=== PATIENT | male | born 1955 | race Asian ===

== ENCOUNTER 2018-11-23 10:34 | Inpatient (IN) | payer OTHER ==
[~2018-11-23 10:34] MED LIST: CEFAZOLIN 2 GM/50 ML (PMX) 50 ML IVPB; GLYCOPYRROLATE 0.4 MG INJ; Metronidazole 500 MG in NS 100 ML IVPB; NEOSTIGMINE 3 MG/3 ML SYRINGE; ROCURONIUM 50 MG INJ; metroNIDAZOLE 500 MG/100 ML NS IVPB
[2018-11-23] MEDS ORDERED: MIDAZOLAM 1 MG/ML 2 ML INJ (13:32)
[2018-11-23] MEDS ORDERED: morphine SULFATE/PF (10 MG/10 ML) INJ (13:32)
[2018-11-23] MEDS ORDERED: FENTAnyl 50 MCG/ML VIAL (13:32)
[2018-11-23] MEDS ORDERED: LIDOCAINE 2% (SDV) 5 ML INJ (14:32)
[2018-11-23] MEDS: D5W-0.45 NACL + KCL 20 MEQ 1,000 ML IV ×2 (14:32→20:55)
[2018-11-23] MEDS ORDERED: ETOMIDATE 20 MG INJ (14:32)
[2018-11-23] MEDS ORDERED: CEFAZOLIN 1 GM INJ (14:33)
[2018-11-23] MEDS ORDERED: ONDANSETRON 4 MG INJ (14:41)
[2018-11-23] MEDS ORDERED: ONDANSETRON 4 MG INJ IV ×2 (15:00)
[2018-11-23] MEDS ORDERED: LORAZEPAM 2 MG INJ IV (15:00)
[2018-11-23] MEDS ORDERED: FENTAnyl 50 MCG/ML VIAL IV (15:00)
[2018-11-23] MEDS ORDERED: DIPHENHYDRAMINE 50 MG INJ IV (15:00)
[2018-11-23] MEDS: metroNIDAZOLE 500 MG/NS (PMX) 100 ML IVPB ×2 (15:00→22:29)
[2018-11-23] MEDS ORDERED: MEPERIDINE 25 MG INJ IV (15:00)
[2018-11-23] MEDS ORDERED: HYDROmorphONE 1 MG/5 ML IV SYRINGE IV ×2 (15:00)
[2018-11-23] MEDS ORDERED: CEFAZOLIN 2 GM/50 ML (PMX) 50 ML IVPB (15:00)
[2018-11-23 15:37] LABS: HEMATOCRIT 40.2 % (42.0-52.0); HEMOGLOBIN 12.5 g/dl (14.0-18.0)
[2018-11-23] MEDS: ACETAMINOPHEN 1000MG/100ML IV 100 ML IVPB ×3 (15:50→20:56)
[2018-11-23 16:03] LABS: ANION GAP 12 (5-13); CARBON DIOXIDE 22 mmol/L (21-31); CHLORIDE 102 mmol/L (97-110); Estimated GFR > 60 mL/min (>60); GLUCOSE 159 mg/dl (70-220)
[2018-11-23 16:11] LABS: BLOOD UREA NITROGEN 9 mg/dl (7-20); CREATININE 0.59 mg/dl (0.61-1.24); SODIUM 136 mmol/L (135-144)
[2018-11-23] MEDS ORDERED: GLUCAGON 1 MG INJ IM (20:30)
[2018-11-23] MEDS ORDERED: DEXTROSE 50% 50 ML SYRINGE IV ×2 (20:30)
[2018-11-23] MEDS ORDERED: GLUCOSE GEL 15 GRAM TUBE PO ×2 (20:30)
[2018-11-23] MEDS ORDERED: GLUCOSE GEL 15 GRAM TUBE BUCCAL (20:30)
[2018-11-23] MEDS: INSULIN ASPART [NOVOLOG] 3 ML PEN SC (21:00)
[2018-11-23] MEDS: CEFAZOLIN 2 GM/50 ML (PMX) 50 ML IVPB (21:47)
[2018-11-24] MEDS: ACETAMINOPHEN 1000MG/100ML IV 100 ML IVPB ×2 (02:38→08:33)
[2018-11-24] MEDS: HYDROmorphONE 0.5 MG/0.5 ML SYG IV (02:48)
[2018-11-24] MEDS: ACCU-CHEK XX (02:51)
[2018-11-24] MEDS: D5W-0.45 NACL + KCL 20 MEQ 1,000 ML IV (03:52)
[2018-11-24] MEDS: PANTOPRAZOLE (EC) 40 MG TAB PO (05:20)
[2018-11-24] MEDS: CEFAZOLIN 2 GM/50 ML (PMX) 50 ML IVPB ×2 (05:20→14:13)
[2018-11-24 05:43] LABS: INR 1.19; PROTIME 15.2 Sec (11.9-14.9); PT RATIO 1.2
[2018-11-24] MEDS: DIPHENHYDRAMINE 50 MG INJ IV (05:59)
[2018-11-24] MEDS: metroNIDAZOLE 500 MG/NS (PMX) 100 ML IVPB (06:00)
[2018-11-24] MEDS: POTASSIUM CHLORIDE 10 MEQ in SOD CHLORIDE 0.45% 1,000 ML IV (08:29)
[2018-11-24] MEDS: KETOROLAC 15 MG INJ IV ×3 (08:34→20:36)
[2018-11-24] MEDS: INSULIN ASPART [NOVOLOG] 3 ML PEN SC ×4 (08:47→20:44)
[2018-11-24 08:49] LABS: ADD MAN DIFF? NO
[2018-11-24 08:51] LABS: BASOPHILS % 0.2 % (0.0-2.0); EOSINOPHILS # 0.1 10^3/ul (0.0-0.5); EOSINOPHILS % 0.4 % (0.0-7.0); HEMATOCRIT 37.8 % (42.0-52.0); HEMOGLOBIN 11.8 g/dl (14.0-18.0); LYMPHOCYTES # 1.1 10^3/ul (0.8-2.9); LYMPHOCYTES % 9.3 % (15.0-51.0); MEAN CORPUSCULAR HEMOGLOBIN 25.1 pg (29.0-33.0); MEAN CORPUSCULAR HGB CONC 31.2 g/dl (32.0-37.0); MEAN CORPUSCULAR VOLUME 80.4 fl (82.0-101.0); MONOCYTE # 1.2 10^3/ul (0.3-0.9); MONOCYTES % 9.6 % (0.0-11.0); NEUTROPHIL # 9.8 10^3/ul (1.6-7.5); NEUTROPHILS % 80.2 % (39.0-77.0); PLATELET COUNT 280 10^3/UL (140-415); RED CELL DISTRIBUTION WIDTH 13.8 % (11.5-14.5)
[2018-11-24 08:51] LABS: WHITE BLOOD COUNT 12.3 10^3/ul (4.8-10.8)
[2018-11-24 09:02] LABS: ANION GAP 10 (5-13); BLOOD UREA NITROGEN 10 mg/dl (7-20); CALCIUM 8.8 mg/dl (8.4-10.2); CARBON DIOXIDE 25 mmol/L (21-31); CHLORIDE 97 mmol/L (97-110); CREATININE 0.67 mg/dl (0.61-1.24); Estimated GFR > 60 mL/min (>60); GLUCOSE 220 mg/dl (70-220); POTASSIUM 4.7 mmol/L (3.5-5.1); SODIUM 132 mmol/L (135-144)
[2018-11-24] MEDS: ENOXAPARIN 40 MG/0.4 ML SYG SC (12:11)
[2018-11-24] MEDS: DOCUSATE SODIUM 100 MG CAP PO (17:43)
[2018-11-24] MEDS: OXYCODONE/ACETAMINOPHEN (5/325) TAB PO (20:56)
[2018-11-25] MEDS: KETOROLAC 15 MG INJ IV ×4 (01:42→20:44)
[2018-11-25] MEDS: ACCU-CHEK XX (01:44)
[2018-11-25] MEDS: POTASSIUM CHLORIDE 10 MEQ in SOD CHLORIDE 0.45% 1,000 ML IV (01:50)
[2018-11-25] MEDS: PANTOPRAZOLE (EC) 40 MG TAB PO (05:19)
[2018-11-25 05:20] LABS: ADD MAN DIFF? NO
[2018-11-25 05:26] LABS: BASOPHILS % 0.3 % (0.0-2.0); EOSINOPHILS # 0.2 10^3/ul (0.0-0.5); EOSINOPHILS % 1.5 % (0.0-7.0); HEMATOCRIT 33.7 % (42.0-52.0); LYMPHOCYTES # 2.1 10^3/ul (0.8-2.9); LYMPHOCYTES % 17.5 % (15.0-51.0); MEAN CORPUSCULAR HEMOGLOBIN 24.8 pg (29.0-33.0); MEAN CORPUSCULAR HGB CONC 32.6 g/dl (32.0-37.0); MEAN CORPUSCULAR VOLUME 75.9 fl (82.0-101.0); MEAN PLATELET VOLUME 9.2 fl (7.4-10.4); MONOCYTE # 1.3 10^3/ul (0.3-0.9); MONOCYTES % 10.7 % (0.0-11.0); NEUTROPHIL # 8.4 10^3/ul (1.6-7.5); NEUTROPHILS % 69.7 % (39.0-77.0); PLATELET COUNT 243 10^3/UL (140-415); RED BLOOD COUNT 4.44 10^6/ul (4.70-6.10); RED CELL DISTRIBUTION WIDTH 13.1 % (11.5-14.5)
[2018-11-25 05:52] LABS: ANION GAP 10 (5-13); BLOOD UREA NITROGEN 9 mg/dl (7-20); CALCIUM 8.2 mg/dl (8.4-10.2); CARBON DIOXIDE 21 mmol/L (21-31); CHLORIDE 94 mmol/L (97-110); CREATININE 0.62 mg/dl (0.61-1.24); Estimated GFR > 60 mL/min (>60); GLUCOSE 167 mg/dl (70-220); POTASSIUM 3.8 mmol/L (3.5-5.1); SODIUM 125 mmol/L (135-144)
[2018-11-25] MEDS: ENOXAPARIN 40 MG/0.4 ML SYG SC (06:24)
[2018-11-25] MEDS ORDERED: traMADol 50 MG TAB GTB (08:00)
[2018-11-25] MEDS ORDERED: SOD CHLORIDE 0.9% 1,000 ML IV (08:00)
[2018-11-25] MEDS: AMLODIPINE 5 MG TAB GTB (08:44)
[2018-11-25] MEDS: INSULIN ASPART [NOVOLOG] 3 ML PEN SC ×4 (08:53→20:46)
[2018-11-25] MEDS: POTASSIUM CHLORIDE 10 MEQ in SOD CHLORIDE 0.9% 1,000 ML IV ×2 (10:56→22:31)
[2018-11-25] MEDS ORDERED: POTASSIUM CHLORIDE 10 MEQ in SOD CHLORIDE 0.9% 1,000 ML IV (14:30)
[2018-11-26] MEDS: KETOROLAC 15 MG INJ IV ×2 (02:32→09:22)
[2018-11-26] MEDS: ACCU-CHEK XX (02:32)
[2018-11-26 05:29] LABS: ADD MAN DIFF? NO
[2018-11-26 05:33] LABS: BASOPHILS % 0.3 % (0.0-2.0); EOSINOPHILS # 0.3 10^3/ul (0.0-0.5); EOSINOPHILS % 2.8 % (0.0-7.0); HEMATOCRIT 33.2 % (42.0-52.0); HEMOGLOBIN 10.8 g/dl (14.0-18.0); LYMPHOCYTES # 1.3 10^3/ul (0.8-2.9); LYMPHOCYTES % 13.8 % (15.0-51.0); MEAN CORPUSCULAR HEMOGLOBIN 24.8 pg (29.0-33.0); MEAN CORPUSCULAR HGB CONC 32.5 g/dl (32.0-37.0); MEAN CORPUSCULAR VOLUME 76.3 fl (82.0-101.0); MEAN PLATELET VOLUME 9.7 fl (7.4-10.4); MONOCYTE # 1.3 10^3/ul (0.3-0.9); MONOCYTES % 13.1 % (0.0-11.0); NEUTROPHIL # 6.7 10^3/ul (1.6-7.5); NEUTROPHILS % 69.5 % (39.0-77.0); PLATELET COUNT 264 10^3/UL (140-415); RED BLOOD COUNT 4.35 10^6/ul (4.70-6.10); RED CELL DISTRIBUTION WIDTH 13.2 % (11.5-14.5)
[2018-11-26 05:33] LABS: WHITE BLOOD COUNT 9.6 10^3/ul (4.8-10.8)
[2018-11-26 06:04] LABS: ANION GAP 8 (5-13); BLOOD UREA NITROGEN 6 mg/dl (7-20); CALCIUM 8.4 mg/dl (8.4-10.2); CARBON DIOXIDE 23 mmol/L (21-31); CHLORIDE 103 mmol/L (97-110); CREATININE 0.59 mg/dl (0.61-1.24); Estimated GFR > 60 mL/min (>60); GLUCOSE 222 mg/dl (70-220); POTASSIUM 3.9 mmol/L (3.5-5.1); SODIUM 134 mmol/L (135-144)
[2018-11-26] MEDS: PANTOPRAZOLE (EC) 40 MG TAB PO (06:23)
[2018-11-26] MEDS: ENOXAPARIN 40 MG/0.4 ML SYG SC (06:29)
[2018-11-26] MEDS: AMLODIPINE 5 MG TAB GTB (09:22)
[2018-11-26] MEDS: INSULIN ASPART [NOVOLOG] 3 ML PEN SC (09:27)
[2018-11-26] MEDS: POTASSIUM CHLORIDE 10 MEQ in SOD CHLORIDE 0.9% 1,000 ML IV (10:11)
== END 2018-11-26 12:45 | disposition home or self-care (01) | DRG 330 ==
LOC: REC 10:34 → MS1 18:31
PROVIDERS: Colon & Rectal Surgery
PROC: 0DBE0ZZ Excision of Large Intestine, Open Approach (ICD-10-PCS; principal; 2018-11-23 13:00)
DX: Z43.3 Encounter for attention to colostomy (principal); E87.1 Hypo-osmolality and hyponatremia; E11.9 Type 2 diabetes mellitus without complications; I10 Essential (primary) hypertension
CPT/HCPCS: 80048; 82962; 85014; 85018; 85025; 85610; 88307; 90686; 97116; 97161; 97530